=== PATIENT | female | born 1980 | race Caucasian/White ===

== ENCOUNTER 2023-12-28 19:20 | Emergency (ER) | payer MEDICAID ==
[~2023-12-28] VITALS: Ht 154.9 cm; Wt 41.0 kg
[2023-12-28 19:47] VITALS: BP 131/79; PULSE 74; RESP 16; TEMP 98.5; O2SAT 100
[2023-12-28] MEDS ORDERED: PERM59LI8 TP (20:03)
[2023-12-28] MEDS ORDERED: NIZOS TP (20:15)
== END 2023-12-28 20:24 | disposition home or self-care (01) ==
LOC: ER 19:20
DX: L21.9 Seborrheic dermatitis, unspecified (principal)
CPT/HCPCS: 99282